=== PATIENT | female | born 1950 | race Caucasian/White ===

== ENCOUNTER 2019-09-26 08:57 | Emergency (ER) | payer MEDICARE ==
[~2019-09-26] VITALS: Ht 165.1 cm; Wt 95.3 kg
--- OUTSIDE RECORDS SUMMARY | 2019-09-26 09:00 | XMS REPORT ---
Author [facility] Address Unknown Phone Unavailable Care Team Providers Care Manager Construction Name Role Phone Unavailable Unavailable Payers Payer Name Policy Type Policy Number Effective Date Expiration Date Problems This patient has no known problems. Allergies, Adverse Reactions, Alerts Allergy Name Allergy Type Status Severity Reaction(s) Onset Date Inactive Date Treating Clinician Comments sumatriptan succinate DA Active SV 2019-04-27 00:00:00 sumatriptan succinate DA Active U 2018-11-18 00:00:00 sumatriptan succinate DA Active U 2018-06-08 00:00:00 Medications This patient has no known medications. Encounters Start Date/Time End Date/Time Encounter Type Admission Type Attending Clinicians Care Facility Care Department Encounter ID 2019-07-28 08:07:00 2019-07-28 08:07:00 Outpatient [facility] CAR 7503 Results Test Description Test Time Test Comments Text Results Atomic Results Result Comments - MRI UP JNT W/O CONT LT 2019-06-21 14:14:00 Patient Name: ORTIZ ALEX Unit No: [id number] EXAMS: CPT CODE: [id number] MRI UP JNT W/[place] [address] MR of the left shoulder without contrast TECHNIQUE: Paracoronal, parasagittal and axial multisequence images obtained. COMPARISON: None available. FINDINGS: Acromioclavicular joint: Moderate degenerative changes. Rotator cuff: High-grade supraspinatus tendon tear is demonstrated at the insertion measuring 1.8 cm, which reaches full-thickness anteriorly. Posteriorly, some bursal surface fibers are spared. Tendon retraction measures up to 1.5 cm. Infraspinatus tendinosis is also noted with superimposed low-grade interstitial tear. No significant muscle atrophy. Long head biceps tendon: The long head of the biceps tendon is markedly attenuated, nearly completely torn. Labrum: Complex labral tearing involves the superior and posterior labrum. Cartilage/ bone: No full-thickness cartilage loss. No acute fracture visualized. No suspicious osseous lesion. Other: Joint effusion is present as well as pronounced synovitis. IMPRESSION: 1. High-grade supraspinatus tendon tear which reaches full-thickness. Tendon retraction measures up to 1.5 cm. 2. Near complete tear of the biceps tendon. 3. Glenohumeral joint effusion and pronounced synovitis. at 5090 Reported and signed by: Reese Andres M.D. CC: Technologist: MADINA FOSTER RT(R) Transcribed D/ (6382) [email or web address] [facility] NAME: ORTIZ ALEX [address] [facility] PHYS: WIMDA.[place]ra [place] : 1950 AGE: 68 SEX: F [place] [address] LOC: Y.MRI PHONE #: [phone] EXAM DATE: 06/18/2019 STATUS: DEP CLI FAX #: [phone] RAD #: D/C DT PAGE 1 Signed Report Patient Name: ORTIZ ALEX Unit No: [id number] EXAMS: CPT CODE: [id number] [place] JNT W/[place] [address] <Continued> Orig Print D/T: S: 06/21/2019 (7847) [facility] NAME: ORTIZ ALEX [address] [facility] PHYS: WIMDA.Mayra - Oswald Kolb : 1950 AGE: 68 SEX: F [place] [address] LOC: Y.MRI PHONE #: [phone] EXAM DATE: 06/18/2019 STATUS: DEP CLI FAX #: [phone] RAD #: D/C DT PAGE 2 Signed Report - XR FLUORO FOR SPINE INJ 2019-04-27 10:11:00 Patient Name: ORTIZ ALEX Unit No: [id number] EXAMS: CPT CODE: [id number] XR FLUORO FOR SPINE INJ 53676 Bilateral SHOULDER INJECTION REFERRING PHYSICIAN: PREOPERATIVE DIAGNOSIS: 1.Bilateral shoulder arthropathy POSTOPERATIVE DIAGNOSIS: Bilateral shoulder arthropathy . 2.Findings: PROCEDURES PERFORMED: 1.Fluoroscopic guided needle localization of bilateral shoulder joint. 2.Arthrogram of bilateral shoulder joint and placement of local anesthetic and steroids in bilateral shoulder joint. FINDINGS: 1. Good spread both joints await local anesthetic response ANTIBIOTIC: Cefazolin ESTIMATED BLOOD LOSS: Minimal ANESTHESIA: (TIVA) Total intravenous anesthetic (patient intolerant to sedatives and hypnotics) COMPLICATIONS: None DETAILS OF PROCEDURE: After obtaining stable vital signs, informed consent and IV access, with no known contraindications to proceeding, the patient was taken to the fluoroscopy suite and placed in a supine position with all extremities padded and appropriate monitors placed. Using standard technique, and fluoroscopic guidance, a 27-gauge needle was advanced into the bilateral shoulder joint and 2 mL of Isovue-300 contrast was injected to produce an arthrogram. No paresthesias were noted with placement of the needle. The results of the arthrogram are detailed above. Then 2 mL of 0.75 percent Marcaine and 2 mL of 4% lidocaine and 20 mg of triamcinolone was injected into the joint. Areas was cleaned of the prep and the patient was taken to the recovery room in stable condition. at 1011 Reported and signed by: Navid Wilkins M.D. CC: Navid Wilkins MD Technologist: MARIAM TERRELL RT(R) Transcribed D/ (1011) [facility] NAME: ORTIZ ALEX [address] [facility] PHYS: DOCUD - Navid Wilkins MD [place], [place] [address] : 1950 AGE: 68 SEX: F LOC: [place] PHONE #: [phone] EXAM DATE: 04/27/2019 STATUS: REG [facility] FAX #: [phone] RAD #: D/C DT PAGE 1 Signed Report Patient Name: ORTIZ ALEX Unit No: [id number] EXAMS: CPT CODE: [id number] XR FLUORO FOR SPINE INJ 87345 <Continued> Orig Print D/T: S: 04/27/2019 (1014) [facility] NAME: ORTIZ ALEX [address] [facility] PHYS: DOCUD - DoctorNavid MD [place], [place] [address] : 1950 AGE: 68 SEX: F LOC: [place] PHONE #: [phone] EXAM DATE: 04/27/2019 STATUS: REG [facility] FAX #: [phone] RAD #: D/C DT PAGE 2 Signed Report - MRI C-SPINE W/O CONT 2019-04-25 10:55:00 Patient Name: ORTIZ ALEX Unit No: [id number] EXAMS: CPT CODE: [id number] MRI C-SPINE W/O CONT 58834 TECHNIQUE: Multiplanar, multisequence MRI examination performed of the cervical spine without intravenous contrast material. COMPARISON: None available. FINDINGS: Alignment: Grade 1 retrolisthesis of C5-C6 and grade 1 spondylolisthesis of C4-C5 and C7-T1 Bone Lesion / Fracture: None present. Cervical Spinal Cord: No cord expansion or abnormal signal. Prevertebral / Paraspinal Soft Tissues: Unremarkable. C2/3: Disc degeneration with small disc bulge. Bilateral facet and uncovertebral hypertrophy result in moderate bilateral foraminal stenosis. There is mild central canal stenosis. C3/4: Left asymmetric disc bulge osteophyte complex. Left-sided facet and uncovertebral hypertrophy result in severe left foraminal stenosis. There is mild right foraminal stenosis and mild central canal stenosis. C4/5: Slight spondylolisthesis. Bilateral facet hypertrophy and fusion. Uncovertebral hypertrophy is greater on the right. There is mild left, moderate right foraminal stenosis as well as mild central canal stenosis. C5/6: Grade 1 retrolisthesis. Marked disc degeneration with height loss and broad disc bulge osteophyte complex. Severe bilateral uncovertebral hypertrophy is noted as well as bilateral facet degeneration. There is severe central canal stenosis with mass effect on the spinal cord. No cord signal abnormality is visualized. Severe bilateral foraminal stenosis is noted as well. C6/7: Right asymmetric disc bulge osteophyte complex. Facet and uncovertebral hypertrophy result in moderate left, severe right foraminal stenosis. There is moderate central canal stenosis. C7/T1: Slight spondylolisthesis. Small disc bulge. Severe bilateral facet hypertrophy contributes to moderate left, mild right foraminal stenosis. Mild central canal stenosis. IMPRESSION: Advanced cervical spondylosis, greatest at C5- C6, where there is severe central canal stenosis and severe bilateral foraminal narrowing. [facility] NAME: ORTIZ ALEX [address] [facility] PHYS: Navid Payan MD : 1950 AGE: 68 SEX: F [place] [address] LOC: Y.MRI PHONE #: [phone] EXAM DATE: 04/24/2019 STATUS: DEP CLI FAX #: [phone] RAD #: D/C DT PAGE 1 Signed Report (CONTINUED) Patient Name: ORTIZ ALEX Unit No: [id number] EXAMS: CPT CODE: [id number] MRI C-SPINE W/O CONT 55103 <Continued> at 1055 Reported and signed by: Reese Andres M.D. CC: Navid Wilkins MD Technologist: ALAN HUANG MRI Transcribed D/ (1055) [facility] NAME: ORTIZ ALEX [address] [facility] PHYS: Navid Payan MD : 1950 AGE: 68 SEX: F [place] [address] LOC: Y.MRI PHONE #: [phone] EXAM DATE: 04/24/2019 STATUS: DEP CLI FAX #: [phone] RAD #: D/C DT PAGE 2 Signed Report Patient Name: ORTIZ ALEX Unit No: [id number] EXAMS: CPT CODE: [id number] MRI C-SPINE W/O CONT 95759 <Continued> Orig Print D/T: S: 04/25/2019 (1058) [facility] NAME: ORTIZ ALEX [address] [facility] PHYS: DOCUD - Doctor,Navid Esparza MD : 1950 AGE: 68 SEX: F [place], [place] [address] LOC: Y.MRI PHONE #: [phone] EXAM DATE: 04/24/2019 STATUS: AICHA CLI FAX #: [phone] RAD #: D/C DT PAGE 3 Signed Report
[2019-09-26] MEDS ORDERED: NAPROSYN500 MG PO (09:30)
--- NOTE | 2019-09-26 10:47 | Diagnostic Imaging Report ---
LEFT FOOT X-RAY - 3 VIEWS HISTORY: ^[id number] ^[id number] COMPARISON: None available. FINDINGS: Bones: No acute displaced fracture. Well corticated adjacent to fragments next to the cuboid bone may represent an age-indeterminate fracture of the sesamoid. Osseous alignment is within normal limits. Joints: Calcaneal enthesopathy. Soft tissues: The soft tissues appear unremarkable. IMPRESSION: Suspect age-indeterminate mildly displaced fracture of the sesamoid bone adjacent to the cuboid bone. Correlate with region of pain. Otherwise, no displaced fractures in the left foot. Signed by: Dr. Gaby Jaimes M.D. on 09/26/2019 10:44 AM
--- NOTE | 2019-09-26 10:48 | Diagnostic Imaging Report ---
LEFT ANKLE X-RAY - 3 VIEWS HISTORY: ^[id number] ^[id number] COMPARISON: None available. FINDINGS: Bones: No acute displaced fracture. Remote posttraumatic deformity of the medial and lateral malleolus. Osseous alignment is within normal limits. Joints: Calcaneal enthesopathy. Soft tissues: The soft tissues appear unremarkable. IMPRESSION: No acute radiographic abnormality. Signed by: Dr. Gaby Jaimes M.D. on 09/26/2019 10:45 AM
== END 2019-09-26 11:07 | disposition home or self-care (01) ==
LOC: FSED 08:57
DX: M25.572 Pain in left ankle and joints of left foot (principal); M72.2 Plantar fascial fibromatosis; I95.9 Hypotension, unspecified
CPT/HCPCS: 80053; 85025; 93005; 99284

== ENCOUNTER 2021-04-03 05:34 | Emergency (ER) | payer MEDICARE ==
[~2021-04-03] VITALS: Ht 165.1 cm; Wt 82.6 kg
[~2021-04-03 05:34] MED LIST: NAPROSYN500 MG PO
[2021-04-03] MEDS ORDERED: KETOROLAC TROMETHAMINE 30 MG/ML VIAL IM ONE (06:00)
[2021-04-03] MEDS ORDERED: PREDNISOLONE 15 MG/5 ML ORAL SOLUTION NG ONE (06:00)
[2021-04-03] MEDS ORDERED: PREDNISONE 20 MG TAB PO ONE (06:00)
[2021-04-03] MEDS ORDERED: ONDANSETRON HCL 4 MG ORAL DISINTEGRATING TAB PO ONE (06:00)
[2021-04-03] MEDS ORDERED: HYDROCODONE/APAP 5MG-325MG TAB PO ONE (06:00)
[2021-04-03] MEDS ORDERED: IBUPROFEN IB200 MG PO (06:06)
[2021-04-03] MEDS ORDERED: TYLENOL # 31 EA PO (06:06)
[2021-04-03] MEDS ORDERED: PREDNISONE20 MG PO (06:32)
[2021-04-03 06:41] VITALS: BP 110/60
== END 2021-04-03 06:41 | disposition home or self-care (01) ==
LOC: FSED 05:57
DX: M25.571 Pain in right ankle and joints of right foot (principal); S93.601A Unspecified sprain of right foot, initial encounter; X50.1XXA Overexertion from prolonged static or awkward postures, initial encounter; M19.071 Primary osteoarthritis, right ankle and foot; M06.9 Rheumatoid arthritis, unspecified; I10 Essential (primary) hypertension; E78.5 Hyperlipidemia, unspecified; Z96.653 Presence of artificial knee joint, bilateral
CPT/HCPCS: 73600; 73620; 96372; 99283; J1885; J7512; Q0162

== ENCOUNTER 2022-06-16 10:39 | Emergency (ER) | payer MEDICARE, OTHER ==
[~2022-06-16] VITALS: Ht 165.1 cm; Wt 82.6 kg
[~2022-06-16 10:39] MED LIST changes: +IBUPROFEN IB200 MG PO; +PREDNISONE20 MG PO; +TYLENOL # 31 EA PO
[2022-06-16] MEDS ORDERED: AUGMENTIN 500-1 EACH PO (11:16)
== END 2022-06-16 11:29 | disposition home or self-care (01) ==
LOC: FSED 10:45
DX: S81.812A Laceration without foreign body, left lower leg, initial encounter (principal); W54.1XXA Struck by dog, initial encounter; Y92.89 Other specified places as the place of occurrence of the external cause; I10 Essential (primary) hypertension; E78.5 Hyperlipidemia, unspecified; M06.9 Rheumatoid arthritis, unspecified
CPT/HCPCS: 99284